=== PATIENT | male | born 1995 | race Caucasian/White ===

== ENCOUNTER 2018-08-16 09:24 | Emergency (ER) | payer OTHER ==
[~2018-08-16] VITALS: Ht 162.6 cm; Wt 65.3 kg
[2018-08-16] MEDS ORDERED: IBUP-1022 PO (09:35)
[2018-08-16] MEDS ORDERED: IBUPROFEN 800 MG TAB PO ONE (10:00)
[2018-08-16] MEDS ORDERED: ROBA500T PO (11:52)
[2018-08-16 12:16] VITALS: BP 145/79
--- NOTE | 2018-08-16 14:03 | REP ---
CT lumbar spine without contrast: History: Injury in a fall. Point tenderness. Technique: Helical scanning is acquired. Axial 4 mm images are generated. Coronal and sagittal multiplanar re-formation images are reviewed. CT findings: Lumbar vertebral body heights are preserved. Alignment is normal. Pedicles and posterior elements are intact. No fracture or collapse is seen. There is no evidence of spondylolysis or spondylolisthesis. The upper sacrum is intact. SI joints are unremarkable. No paravertebral soft-tissue process or edema is seen. No CT evidence of disc protrusion. Impression: Negative CT study of the lumbar spine. Electronically Signed by Bud Medina MD 08/16/2018 08:32 P
== END 2018-08-16 12:21 | disposition home or self-care (01) ==
LOC: M ED 09:24
DX: M62.830 Muscle spasm of back (principal)